=== PATIENT | male | born 1955 | race Caucasian/White ===

== ENCOUNTER 2019-05-06 06:41 | Day surgery (SDC) | payer OTHER ==
[~2019-05-06] VITALS: Ht 175.3 cm; Wt 81.7 kg
[2019-05-06 07:35] VITALS: BP 113/77
== END 2019-05-06 12:00 | disposition home or self-care (01) ==
LOC: OUT 06:41
PROVIDERS: ATTEND Orthopaedic Surgery
DX: S83.232A Complex tear of medial meniscus, current injury, left knee, initial encounter (principal); S83.282A Other tear of lateral meniscus, current injury, left knee, initial encounter; M22.42 Chondromalacia patellae, left knee; M79.5 Residual foreign body in soft tissue; Z79.1 Long term (current) use of non-steroidal anti-inflammatories (NSAID); Z82.61 Family history of arthritis; Z82.49 Family history of ischemic heart disease and other diseases of the circulatory system; X58.XXXA Exposure to other specified factors, initial encounter; Y93.89 Activity, other specified; Y92.89 Other specified places as the place of occurrence of the external cause; Y99.8 Other external cause status
CPT/HCPCS: 29880; 93005; J0690; J1100; J2250; J2405; J2704; J2795; J3010; J3490; J7120